=== PATIENT | male | born 1975 | race Caucasian/White ===

== ENCOUNTER 2021-10-20 01:38 | Emergency (ER) | payer BC, SELFPAY ==
[2021-10-20] VITALS (12 sets, daily range): BP systolic 162–198; BP diastolic 94–116; PULSE 90–111; RESP 14–16; TEMP 37.2; O2SAT 94–99; BMI 38.7
--- NOTE | 2021-10-20 01:40 | EKG12_ITS ---
Test Reason : STROKE Blood Pressure : / mmHG Vent. Rate : 088 BPM Atrial Rate : 088 BPM P-R Int : 174 ms QRS Dur : 092 ms QT Int : 372 ms P-R-T Axes : 036 -23 034 degrees QTc Int : 450 ms Normal sinus rhythm Poor R wave progression Confirmed by GABRIELA FERREIRA, LINDA ([id number]), offline editor VIVEK MATT ([id number]) on 10/21/2021 11:45:46 AM Referred By: GILBERTO Confirmed By:LINDA OCHOA MD
--- NOTE | 2021-10-20 01:40 | CT_ITS ---
We are attempting to reach an attending provider to discuss findings. An addendum with communication details will be sent when the communication is complete. STUDY: CT HEAD STROKE PROTOCOL W/O CONTRAST INJECTION REASON FOR EXAM: Male, 46 years old. Neuro deficit, acute, stroke suspected RADIATION DOSAGE (If Supplied By Facility): CTDIvol = ( ) mGy, DLP = ( ) mGycm TECHNIQUE: Transaxial CT imaging of the brain was performed without administration of intravenous contrast material. The study was timed stamped 1:41 AM and sent for interpretation at 1:54 AM. Individualized dose optimization techniques were used for this CT. COMPARISON: No relevant priors. FINDINGS: Normal soft tissue structures. Normal calvarium. There is slight effacement of the right side of the ventricles. Normal white matter tracts of the cerebral hemispheres. There is a hemorrhage in the right-sided basal ganglia midline partially extending into the thalamus and partially extending upwards towards the right-sided periventricular white matter and caudate. This measures approximately 2.4 x 2.1 x 3.2 cm centrally and more superiorly there is a focus measuring 2.7 x 1.3 x 2.1 cm. There are smaller adjacent foci measuring 8 to 7 mm. There is some extension within the right side posterior horn with subtle visualized hyperdensity and effacement. Normal brainstem. Normal cerebellum. There is minimal ethmoid sinus mucosal thickening maxillary mucosal thickening. CT/STROKE Brain/Head without Cont IMPRESSION: Acute 2.4 x 2.1 x 3.2 cm with surrounding smaller hemorrhages in the right-sided basal ganglia with subtle extension into the right posterior horn.. Consider hypertensive bleed, could consider hemorrhagic infarct less likely hemorrhagic mass. There is slight right to left midline shift. Electronically Signed: Amalia Membreno MD at 2:01 EST Tel , Service support ,
[2021-10-20 02:01] LABS: Absolute Lymphocyte Count 2.95 X10^3/uL (0.83-4.51); Absolute Neutrophil Count 5.4 X10^3/uL (2.0-7.7); Basophil# 0.06 X10^3/uL; Basophil% 0.6 % (0-1); Eosinophil# 0.24 X10^3/uL; Eosinophils% 2.6 % (0-5); Hematocrit 44.8 % (40-54); Hemoglobin 15.8 g/dL (13.0-16.5); Lymphocyte # 2.95 X10^3/ul (0.83-4.51); Lymphocyte % 31.4 % (19-41); Mean Corp Hgb Conc 35.3 g/dL (32-36); Mean Corpuscular Hgb 32.4 pg (27.0-32.0); Mean Corpuscular Volume 91.8 fL (80-94); Mean Platelet Vol. 11.4 fl (6.2-12.0); Monocyte# 0.71 X10^3/uL; Monocyte% 7.6 % (0-10); NRBC Flagged by Analyzer 0 % (0-5); Neutrophil % 57.5 % (47-70); Platelet Count 214 K/mm3 (150-450); RBC Distribution Width CV 12.4 % (11.6-14.6); RBC Distribution Width SD 42.1 fl (35.1-43.9); Red Blood Count 4.88 M/mm3 (4.6-6.2); White Blood Count 9.4 K/mm3 (4.4-11.0)
[2021-10-20 02:10] LABS: International Normalized Ratio 1.1; Prothrombin Time (Protime)PT. 13.8 SECONDS (11.7-14.9)
[2021-10-20 02:11] LABS: Partial Thromboplast Time 30.6 Seconds (24.1-36.2)
[2021-10-20 02:29] LABS: Anion Gap 9 (5-15); BUN 19 mg/dL (7-18); BUN/Creat Ratio 17.1 RATIO (10-20); Calcium,Total 9.3 mg/dL (8.5-10.1); Chloride 103 mmol/L (98-107); Creatinine, Serum 1.11 mg/dL (0.70-1.30); EST Glomerular Filtration Rate 76 mL/min (>60); Est Glom Filt Rate - Afr Amer 92 mL/min (>60); Estimated Creatinine Clearance 78.57 ml/min; Glucose 340 mg/dL (74-106); Potassium 3.6 mmol/L (3.5-5.1); Sodium Level 138 mmol/L (136-145); Troponin-I HS 12 pg/mL (3.0-78.0)
--- NOTE | 2021-10-20 03:34 | ED.VIS.STROK ---
HPI History of Present Illness Chief Complaint: Neuro S/Sx Narrative Narrative: 46-year-old male with onset of left-sided facial droop and left arm and leg paralysis without sensation at 0107 at work while at [employer]. Patient brought to the emergency room and presents similarly. Patient is alert and awake and answers questions appropriately but cannot move his left arm or left leg and has facial droop and slurred speech. He denies pain anywhere. He states he has no history of stroke. History of diabetes, hypertension. [facility] Medical History Diabetes mellitus Hypertension Home Medications metformin 1,000 mg PO DAILY 10/20/21 [History Last Taken Unknown] Allergy/AdvReac Type Severity Reaction Status Date / Time bee venom protein (honey bee) AdvReac PT UNSURE Verified 10/20/21 02:00 OF REACTION Social History Smoking Status: Unknown if ever smoked ROS ROS ED Constitutional Constitutional ED: Denies chills or fever(s) Eyes Eyes: Denies blurry vision or change in vision ENT ENT ED: Denies rhinorrhea or sore throat Cardiovascular Cardiovascular: Denies chest pain or palpitations Respiratory/Chest Respiratory/Chest: Denies cough or dyspnea Gastrointestinal Gastrointestinal: Denies abdominal pain, nausea or vomiting Genitourinary Genitourinary ED: Denies dysuria or hematuria Neurologic Neurologic: Reports headache(s), paresthesias LUE and LLE and weakness Psychiatric Psychiatric: Denies anxiety or depression EXAM Physical Exam Const Vital Signs: 10/20/21 01:40 10/20/21 01:47 10/20/21 01:57 Temperature 99 F 99 F Temperature Source Temporal Temporal Pulse Rate 94 90 96 Respiratory Rate 15 14 16 Blood Pressure 198/116 H 198/116 H 198/116 H Blood Pressure Mean 143 143 143 Blood Pressure Source Pulse Ox 99 97 96 Oxygen Delivery Method Room Air Room Air 10/20/21 01:59 10/20/21 02:01 10/20/21 02:14 Temperature Temperature Source Pulse Rate 94 100 Respiratory Rate 15 16 Blood Pressure 190/113 H 190/113 H 183/105 H Blood Pressure Mean 138 138 131 Blood Pressure Source Monitor Pulse Ox 96 97 Oxygen Delivery Method Room Air Room Air 10/20/21 02:15 10/20/21 02:30 10/20/21 02:32 Temperature Temperature Source Pulse Rate 100 106 H Respiratory Rate 15 16 Blood Pressure 183/105 H 171/99 H 171/99 H Blood Pressure Mean 131 123 123 Blood Pressure Source Monitor Monitor Pulse Ox 96 97 Oxygen Delivery Method Room Air Room Air 10/20/21 02:41 10/20/21 02:45 10/20/21 02:53 Temperature Temperature Source Pulse Rate 111 H Respiratory Rate 16 Blood Pressure 171/101 H 162/94 H 162/94 H Blood Pressure Mean 124 116 116 Blood Pressure Source Monitor Monitor Pulse Ox 94 Oxygen Delivery Method Room Air Positive obese Nutritional Appearance: obese HEENT Reports moist mucous membranes atraumatic Eyes PERRL and EOMs intact bilaterally Neck no lymphadenopathy and supple Chest Wall inspection of chest normal Resp normal respiratory effort and clear to auscultation bilaterally Cardio Rate: regular rate Rhythm: regular rhythm GI normal to inspection, nondistended, normoactive bowel sounds Neuro oriented x3 Neuro Narrative: NIH stroke scale score of 16 Sensorium / Orientation: alert Psych mental status grossly normal Skin no wounds General Skin Exam: Negative for jaundice STROKE Vital Signs/Narrative: Vital Signs Temp Pulse Resp BP Pulse Ox 10/20/21 02:53 162/94 H 10/20/21 02:45 111 H 16 162/94 H 94 10/20/21 02:41 171/101 H 10/20/21 02:32 171/99 H 10/20/21 02:30 106 H 16 171/99 H 97 10/20/21 02:15 100 15 183/105 H 96 10/20/21 02:14 100 16 183/105 H 97 10/20/21 02:01 190/113 H 10/20/21 01:59 94 15 190/113 H 96 10/20/21 01:57 99 F 96 16 198/116 H 96 10/20/21 01:47 99 F 90 14 198/116 H 97 10/20/21 01:40 94 15 198/116 H 99 MDM MDM MDM Narrative Medical decision making narrative: 46-year-old male presenting with acute stroke symptoms. His NIH stroke score is 15 for mild facial palsy, inability to move his left arm or left leg and loss of sensation in both. He has mild aphasia as well as mild dysarthria. He is unable to do [id number] on the left or touch his nose with his left hand. Stroke team is called. Patient is taken to CT. Patient is not on any blood thinners. His blood pressure is elevated. Patient noted to have an acute hemorrhagic stroke on CT and Cardene drip was started at 5 mg/h. While awaiting the official read of the CAT scan I did speak to [facility] to arrange transport. Once they accepted I called [facility] so that they could be here quickly. The patient required multiple evaluations to titrate the Cardene drip to an effective antihypertensive dose. His blood pressure has come down to 162/94 on [facility] arrival. He is at the max currently at 15 mg/h.his neurologic examination has not worsened or improved. The radiologist did call about the CT of the brain and did tell me the patient had an acute 2.4 x 2.1 x 3.2 cm hemorrhagic stroke in the right basal ganglia with small surrounding hemorrhages with extension into the posterior horn. CBC shows no leukocytosis and hemoglobin hematocrit are stable. Platelets are normal. PT/INR also normal. High-sensitivity troponin is 12. Renal function and electrolytes are normal. EKG on my interpretation shows a normal sinus rhythm with a ventricular rate of 88 bpm without sign of ischemic change. Impression: 1. Acute hemorrhagic stroke 2. Hypertensive emergency Lab Data Attestation: I reviewed the patient's lab results. Labs: Laboratory Results - last 24 hr 10/20/21 10/20/21 10/20/21 01:50 01:50 01:50 WBC 9.4 RBC 4.88 Hgb 15.8 Hct 44.8 MCV 91.8 MCH 32.4 H MCHC 35.3 RDW Std Deviation 42.1 RDW Coeff of Ariadna 12.4 Plt Count 214 MPV 11.4 Immature Gran % (Auto) 0.300 Neut % (Auto) 57.5 Lymph % (Auto) 31.4 [place] % (Auto) 7.6 Eos % (Auto) 2.6 Baso % (Auto) 0.6 Absolute Neuts (auto) 5.4 Absolute Lymphs (auto) 2.95 Nucleated RBC % 0 PT 13.8 INR 1.1 APTT 30.6 Sodium 138 Potassium 3.6 Chloride 103 Carbon Dioxide 26.0 Anion Gap 9 BUN 19 H Creatinine 1.11 Estim Creat Clear Calc 78.57 Est GFR (MDRD) Af Amer 92 Est GFR (MDRD) Non-Af 76 BUN/Creatinine Ratio 17.1 Glucose 340 H Calcium 9.3 Troponin I High Sens 12 Radiography Diagnostic Testing: Clinical Impression(s) from Imaging Studies Brain CT 10/20/21 01:40 IMPRESSION: Acute 2.4 x 2.1 x 3.2 cm with surrounding smaller hemorrhages in the right-sided basal ganglia with subtle extension into the right posterior horn.. Consider hypertensive bleed, could consider hemorrhagic infarct less likely hemorrhagic mass. There is slight right to left midline shift. Electronically Signed: Amalia Membreno MD at 2:01 EST Tel , Service support , ADDENDUM: 10/20/21 0221 IMPRESSION: Acute 2.4 x 2.1 x 3.2 cm with surrounding smaller hemorrhages in the right-sided basal ganglia with subtle extension into the right posterior horn.. Consider hypertensive bleed, could consider hemorrhagic infarct less likely hemorrhagic mass. There is slight right to left midline shift. N.B. : The above Results were Read Back by Amalia Membreno MD to Dr. Daniel MD, and understanding confirmed on 10/20/2021 02:14:03 (ET). Electronically Signed: Amalia Membreno MD at 2:01 EST Tel , Service support , Discharge Plan Triage Chief Complaint: Neuro S/Sx ED Provider: Jose Antonio Sanchez Dx/Rx/DC Orders Prescriptions: No Action metformin 1,000 mg Tablet 1,000 mg PO DAILY RF: 0 Primary Care Provider: Ok Root Referrals: Ok Root MD [Primary Care Provider] - Disposition Disposition: Acute Care Hospital Discharge Location: [facility] Discharge Date/Time: 10/20/21 03:06
== END 2021-10-20 03:06 | disposition short-term general hospital (02) ==
LOC: ED 02:17
PROVIDERS: Emergency Provider Student in an Organized Health Care Education/Training Program; PCP Family Medicine
DX: I61.9 Nontraumatic intracerebral hemorrhage, unspecified (principal); R29.810 Facial weakness; R47.01 Aphasia; R47.02 Dysphasia; G83.24 Monoplegia of upper limb affecting left nondominant side; G83.14 Monoplegia of lower limb affecting left nondominant side; R29.715 NIHSS score 15; I16.1 Hypertensive emergency; I10 Essential (primary) hypertension; E11.9 Type 2 diabetes mellitus without complications; Z79.84 Long term (current) use of oral hypoglycemic drugs; Z79.899 Other long term (current) drug therapy
CPT/HCPCS: 70450; 80048; 84484; 85025; 85610; 85730; 93005; 96365; 96375; 99285; J7050; A4216

== ENCOUNTER → 2021-12-31 | Outpatient (REF) | payer SELFPAY ==
[2021-12-31 08:21] LABS: Absolute Lymphocyte Count 2.15 X10^3/uL (0.83-4.51); Absolute Neutrophil Count 3.5 X10^3/uL (2.0-7.7); Basophil# 0.04 X10^3/uL; Basophil% 0.6 % (0-1); Eosinophil# 0.19 X10^3/uL; Hematocrit 44.4 % (40-54); Hemoglobin 15.1 g/dL (13.0-16.5); Lymphocyte # 2.15 X10^3/ul (0.83-4.51); Lymphocyte % 33.9 % (19-41); Mean Corpuscular Hgb 32.3 pg (27.0-32.0); Mean Corpuscular Volume 95.1 fL (80-94); Mean Platelet Vol. 11.3 fl (6.2-12.0); Monocyte# 0.46 X10^3/uL; Monocyte% 7.3 % (0-10); NRBC Flagged by Analyzer 0 % (0-5); Neutrophil # 3.48 X10^3/uL (2.7-7.7); Neutrophil % 54.9 % (47-70); Platelet Count 215 K/mm3 (150-450); RBC Distribution Width CV 13.2 % (11.6-14.6); RBC Distribution Width SD 45.9 fl (35.1-43.9); Red Blood Count 4.67 M/mm3 (4.6-6.2); White Blood Count 6.3 K/mm3 (4.4-11.0)
[2021-12-31 08:34] LABS: BUN 17 mg/dL (7-18); EST Glomerular Filtration Rate 154 mL/min (>60); Glucose 107 mg/dL (74-106)
[2021-12-31 08:35] LABS: Anion Gap 7 (5-15); BUN/Creat Ratio 28.2 RATIO (10-20); CRP 3.35 mg/L (0.0-3.0); Calcium,Total 9.4 mg/dL (8.5-10.1); Chloride 104 mmol/L (98-107); Est Glom Filt Rate - Afr Amer 186 mL/min (>60); Potassium 3.4 mmol/L (3.5-5.1); Sodium Level 139 mmol/L (136-145)
[2021-12-31 08:36] LABS: Hemoglobin A1c 6.3 % (3.8-5.6)
== END | disposition home or self-care (01) ==
LOC: OLS.SW1020 04:00
PROVIDERS: PCP Family Medicine; Referring Provider Internal Medicine; Visit Provider Internal Medicine
DX: I10 Essential (primary) hypertension (principal); E11.9 Type 2 diabetes mellitus without complications
CPT/HCPCS: 36415; 80048; 82306; 83036; 83735; 85025; 86140

== ENCOUNTER → 2022-01-11 | Outpatient (REF) | payer SELFPAY ==
[2022-01-11 08:42] LABS: Hematocrit 46.6 % (40-54); Hemoglobin 16.1 g/dL (13.0-16.5); Mean Corp Hgb Conc 34.5 g/dL (32-36); Mean Corpuscular Hgb 32.7 pg (27.0-32.0); Mean Corpuscular Volume 94.7 fL (80-94); Mean Platelet Vol. 11.9 fl (6.2-12.0); Platelet Count 228 K/mm3 (150-450); RBC Distribution Width CV 12.7 % (11.6-14.6); RBC Distribution Width SD 44.3 fl (35.1-43.9); Red Blood Count 4.92 M/mm3 (4.6-6.2); White Blood Count 8.1 K/mm3 (4.4-11.0)
[2022-01-11 09:05] LABS: Anion Gap 6 (5-15); BUN 18 mg/dL (7-18); BUN/Creat Ratio 25.4 RATIO (10-20); Calcium,Total 9.4 mg/dL (8.5-10.1); Chloride 105 mmol/L (98-107); Creatinine, Serum 0.71 mg/dL (0.70-1.30); EST Glomerular Filtration Rate 127 mL/min (>60); Est Glom Filt Rate - Afr Amer 154 mL/min (>60); Glucose 111 mg/dL (74-106); Potassium 3.7 mmol/L (3.5-5.1); Sodium Level 137 mmol/L (136-145)
== END | disposition home or self-care (01) ==
LOC: OLS.SW1020 04:00
PROVIDERS: PCP Family Medicine; Referring Provider Internal Medicine; Visit Provider Internal Medicine
DX: I10 Essential (primary) hypertension (principal); I63.9 Cerebral infarction, unspecified; E11.9 Type 2 diabetes mellitus without complications
CPT/HCPCS: 36415; 80048; 85027

== ENCOUNTER → 2022-01-18 | Outpatient (REF) | payer SELFPAY ==
[2022-01-18 07:58] LABS: Hematocrit 45.9 % (40-54); Hemoglobin 16.2 g/dL (13.0-16.5); Mean Corp Hgb Conc 35.3 g/dL (32-36); Mean Corpuscular Hgb 33.1 pg (27.0-32.0); Mean Corpuscular Volume 93.7 fL (80-94); Mean Platelet Vol. 11.5 fl (6.2-12.0); Platelet Count 236 K/mm3 (150-450); RBC Distribution Width CV 12.6 % (11.6-14.6); RBC Distribution Width SD 43.8 fl (35.1-43.9); White Blood Count 9.2 K/mm3 (4.4-11.0)
[2022-01-18 08:24] LABS: Anion Gap 7 (5-15); BUN 16 mg/dL (7-18); Calcium,Total 9.1 mg/dL (8.5-10.1); Chloride 105 mmol/L (98-107); Creatinine, Serum 0.64 mg/dL (0.70-1.30); EST Glomerular Filtration Rate 143 mL/min (>60); Est Glom Filt Rate - Afr Amer 173 mL/min (>60); Glucose 123 mg/dL (74-106); Potassium 3.3 mmol/L (3.5-5.1); Sodium Level 137 mmol/L (136-145)
== END | disposition home or self-care (01) ==
LOC: OLS.SW500 04:00
PROVIDERS: PCP Family Medicine; Visit Provider Internal Medicine
DX: I10 Essential (primary) hypertension (principal)
CPT/HCPCS: 36415; 80048; 85027

== ENCOUNTER 2022-01-22 05:36 | Emergency (ER) | payer SELFPAY ==
[2022-01-22 05:38] VITALS: BP 152/93; PULSE 114; RESP 24; TEMP 36.4; O2SAT 95; BMI 32.4
--- NOTE | 2022-01-22 05:48 | RAD_ITS ---
STUDY: X-RAY CHEST REASON FOR EXAM: Male, 46 years old. cough TECHNIQUE: AP portable upright COMPARISON: None. FINDINGS: The lungs are clear and expanded. There is no demonstrated pleural abnormality. There is high position of the diaphragm. There may be mild atelectasis partly obscured by the elevated diaphragm on the right. Normal size heart. Normal mediastinum and sana. Normal visualized pulmonary arteries. Normal visualized aortic arch and descending thoracic aorta. Normal visualized thoracic spine. Normal visualized ribs, clavicles, and shoulders. There is no demonstrated abnormality of the visualized soft tissue structures of the upper abdomen. RAD/Chest 1 View (Portable) IMPRESSION: Lack of a deep inspiration with elevated diaphragm more prominent on the right. Electronically Signed: Maverick Roger MD at 6:47 EDT ,
[2022-01-22 06:18] LABS: Absolute Lymphocyte Count 0.53 X10^3/uL (0.83-4.51); Absolute Neutrophil Count 16.7 X10^3/uL (2.0-7.7); Basophil# 0.03 X10^3/uL; Basophil% 0.2 % (0-1); Hematocrit 47.5 % (40-54); Hemoglobin 17.2 g/dL (13.0-16.5); Lymphocyte # 0.53 X10^3/ul (0.83-4.51); Lymphocyte % 2.9 % (19-41); Mean Corp Hgb Conc 36.2 g/dL (32-36); Mean Corpuscular Hgb 32.8 pg (27.0-32.0); Mean Corpuscular Volume 90.6 fL (80-94); Mean Platelet Vol. 10.9 fl (6.2-12.0); Monocyte% 3.9 % (0-10); NRBC Flagged by Analyzer 0 % (0-5); Neutrophil # 16.66 X10^3/uL (2.7-7.7); Neutrophil % 92.6 % (47-70); POSITIVE DIFFERENTIAL YES; Platelet Count 279 K/mm3 (150-450); RBC Distribution Width CV 12.5 % (11.6-14.6); RBC Distribution Width SD 41.2 fl (35.1-43.9); Red Blood Count 5.24 M/mm3 (4.6-6.2)
[2022-01-22] MEDS: 0.9% Normal Saline 1,000 ML 999 ML IV (06:18)
[2022-01-22 06:21] LABS: Differential Indicated SCAN CRITERIA MET
[2022-01-22 06:33] LABS: Differential Comment SCANNED
--- NOTE | 2022-01-22 06:34 | CT_ITS ---
STUDY: CT ABDOMEN AND PELVIS WITH CONTRAST REASON FOR EXAM: Male, 46 years old. Abdominal pain RADIATION DOSAGE (If Supplied By Facility): CTDIvol = ( 13.54 ) mGy, DLP = ( 1256.54 ) mGycm TECHNIQUE: Transaxial images were obtained from the dome of the diaphragm to the symphysis pubis without oral contrast. IV 100mL Isovue-370 was administered. Sagittal and coronal images were reconstructed. Individualized dose optimization techniques were used for this CT. COMPARISON: None. FINDINGS: There is patchy right lower lung consolidation. There are coronary artery calcifications. Normal liver. Normal gallbladder and extrahepatic biliary system. Normal spleen. Normal pancreas. Normal bilateral adrenal glands. There are 1.9 and 1.0 cm cyst of the right kidney. Normal left kidney. Normal visualized stomach. Normal small intestine. Normal colon. The appendix is visualized and appears normal. Normal abdominal aorta. Normal inferior vena cava. Normal retroperitoneum. Normal urinary bladder. There is no free fluid in the abdomen or pelvis. Normal abdominal wall. Mild degenerative change of the spine. CT/Abdomen/Pelvis W IV Cont ONLY IMPRESSION: No intra-abdominal mass or obstruction. No hydronephrosis. Patchy right lower lung infiltrate. Electronically Signed: Daniel Garcia MD at 9:44 EDT Reading Location ID and State: [facility] / [place] , Service support ,
[2022-01-22 06:43] LABS: Lactic Acid 2.8 mmol/L (0.4-1.9)
--- NOTE | 2022-01-22 08:01 | EDS_ITS ---
HPI History of Present Illness Chief Complaint: Alt LOC Narrative Narrative: Patient is a 46-year-old male from the long term. 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 Nursing reports that he is typically fatigued and slow to respond. They state that there has been a stomach bug going to the facility and the patient's had bouts of nausea and vomiting. They state with this his mental status seems more lethargic than his baseline and therefore he was sent to the hospital for evaluation. Patient cannot provide any further history at this time [facility] Medical History Diabetes mellitus High cholesterol Hypertension Incontinence Stroke/cerebrovascular accident Home Medications apixaban 5 mg PO BID 01/22/22 [History Last Taken Unknown] atorvastatin 40 mg PO DAILY 01/22/22 [History Last Taken Unknown] cholecalciferol (vitamin D3) [Vitamin D3] unit PO DAILY 01/22/22 [History Last Taken Unknown] fluoxetine 40 mg PO DAILY 01/22/22 [History Last Taken Unknown] hydrochlorothiazide 25 mg PO DAILY 01/22/22 [History Last Taken Unknown] lactobacillus combination no.4 [Probiotic] 3,000 mmu cells PO DAILY 01/22/22 [History Last Taken Unknown] lisinopril 10 mg PO DAILY 01/22/22 [History Last Taken Unknown] magnesium 400 mg PO DAILY 01/22/22 [History Last Taken Unknown] multivit no.78-msji-jklhd acid 1 cap PO DAILY 01/22/22 [History Last Taken Unknown] potassium [Potassimin] 20 PO DAILY 01/22/22 [History Last Taken Unknown] Allergy/AdvReac Type Severity Reaction Status Date / Time bee venom protein (honey bee) AdvReac PT UNSURE Verified 10/20/21 13:09 OF REACTION Social History (System 10/20/21 @ 13:09 by Amanda Urena) Smoking Status: Unknown if ever smoked ROS ROS ED Review of Systems ROS Unobtainable: due to mental status EXAM Physical Exam Const Vital Signs: 01/22/22 05:38 Temperature 97.6 F L Temperature Source Temporal Pulse Rate 114 H Respiratory Rate 24 H Blood Pressure 152/93 H Blood Pressure Mean 112 Pulse Ox 95 Oxygen Delivery Method Room Air Positive well nourished and well developed General Appearance ED: well developed HEENT Reports dry mucous membranes HEENT Narrative: No tongue or cheek biting noted Mouth ED: Yes dry mucous membranes Mouth: dry mucous membranes Eyes PERRL Neck supple Neck Narrative: No meningeal signs Chest Wall palpation of chest normal Resp Resp Narrative: Breath sounds are diminished throughout but overall clear to auscultation with no nasal flaring or retractions noted patient does have mild tachypnea Cardio regular rhythm Rate: tachycardic and other GI non-tender, non-distended and no masses GI Narrative: Bowel sounds are hyperactive but there is no pulsatile mass or fluid wave or rigidity noted Palpation: soft Narrative: No testicular masses or swelling noted no blood or discharge from the urethral meatus. No overlying soft tissue changes to suggest Darrius's gangrene Extremity Extremity Narrative: Patient has paralysis of his left arm and leg consistent with history of previous stroke but there are no signs of acute bony trauma or joint effusion Neuro Neuro Narrative: Patient is obtunded but does respond to pain and is protecting his airway there is no obvious focal neurologic deficit other than his chronic changes from previous CVA Skin no rashes or lesions noted Skin Narrative: Skin turgor is increased without secondary changes to suggest infection MDM MDM MDM Narrative Medical decision making narrative: Patient presented to the ER actually hypertensive and slightly tachycardic. He had tachypnea but otherwise no acute respiratory distress and was taken off oxygen the EMS and placed him on. He desatted to 89% on room air so he was placed on a couple liters of nasal cannula and his pulse ox improved to 92 to 93%. According to long term he is always altered and slow to respond. He seems more so than his baseline according to long term but overall he has no new focal neurologic deficits and is protecting his airway. With his history of vomiting and his tachycardia and concern for dehydration and metabolic encephalopathy as the cause of his symptoms. I do not believe there is physical exam or history findings to suggest acute stroke so there is no need for a CT of his brain at this time or to further assess mental status with ammonia or a blood gas. Patient's white count is elevated at 18 and therefore he will receive a CT of his abdomen pelvis to look for possible infectious process. Patient will be signed out to the incoming physician pending results of the CT scan Lab Data Labs: Laboratory Results - last 24 hr 01/22/22 01/22/22 01/22/22 06:12 06:12 06:12 WBC 18.0 H RBC 5.24 Hgb 17.2 H Hct 47.5 MCV 90.6 MCH 32.8 H MCHC 36.2 H RDW Std Deviation 41.2 RDW Coeff of Ariadna 12.5 Plt Count 279 MPV 10.9 Immature Gran % (Auto) 0.400 Neut % (Auto) 92.6 H Lymph % (Auto) 2.9 L [place] % (Auto) 3.9 Eos % (Auto) 0.0 Baso % (Auto) 0.2 Absolute Neuts (auto) 16.7 H Absolute Lymphs (auto) 0.53 L Nucleated RBC % 0 Differential Comment SCANNED Sodium Cancelled Potassium Cancelled Chloride Cancelled Carbon Dioxide Cancelled Anion Gap Cancelled BUN Cancelled Creatinine Cancelled Estim Creat Clear Calc Cancelled Est GFR (MDRD) Af Amer Cancelled Est GFR (MDRD) Non-Af Cancelled BUN/Creatinine Ratio Cancelled Glucose Cancelled Lactic Acid 2.8 H* Calcium Cancelled Total Bilirubin Cancelled Direct Bilirubin Cancelled AST Cancelled ALT Cancelled Alkaline Phosphatase Cancelled Total Protein Cancelled Albumin Cancelled Globulin Cancelled Lipase Cancelled Radiography Chest X-Ray - ED: 1 View, Read by ED Physician and - (Chest x-ray interpreted by me shows elevation of the diaphragm and poor inspiration but no obvious inflammatory or infectious process) Diagnostic Testing: Clinical Impression(s) from Imaging Studies Chest X-Ray 01/22/22 05:48 IMPRESSION: Lack of a deep inspiration with elevated diaphragm more prominent on the right. Electronically Signed: Maverick Roger MD at 6:47 EDT , Discharge Plan Triage Chief Complaint: Alt LOC ED Provider: Koko Patel Dx/Rx/DC Orders Prescriptions: No Action fluoxetine 40 mg Capsule 40 mg PO DAILY RF: 0 atorvastatin 40 mg Tablet 40 mg PO DAILY RF: 0 Potassimin 75 mg Tablet 20 PO DAILY RF: 0 lisinopril 10 mg Tablet 10 mg PO DAILY RF: 0 hydrochlorothiazide 25 mg Tablet 25 mg PO DAILY RF: 0 magnesium 200 mg Tablet 400 mg PO DAILY RF: 0 multivit no.22-eghw-ivpye acid 106.5-1 mg Capsule 1 cap PO DAILY RF: 0 cholecalciferol (vitamin D3) [Vitamin D3] 125 mcg (5,000 unit) Tablet PO DAILY RF: 0 apixaban 5 mg Tablet 5 mg PO BID RF: 0 Probiotic 3 billion cell Capsule 3,000 mmu cells PO DAILY RF: 0 Primary Care Provider: Violeta Mejia
[2022-01-22 08:16] LABS: AST(SGOT) 14 U/L (15-37); Alanine Aminotransfer ALT/SGPT 34 U/L (16-61); Albumin, Serum 3.3 g/dL (3.2-5.0); Alkaline Phosphatase 154 U/L (45-117); Anion Gap 8 (5-15); BUN 17 mg/dL (7-18); BUN/Creat Ratio 20.8 RATIO (10-20); Bilirubin, Direct 0.38 mg/dL (0.00-0.30); Calcium,Total 9.1 mg/dL (8.5-10.1); Chloride 106 mmol/L (98-107); Creatinine, Serum 0.82 mg/dL (0.70-1.30); EST Glomerular Filtration Rate 108 mL/min (>60); Est Glom Filt Rate - Afr Amer 131 mL/min (>60); Estimated Creatinine Clearance 98.96 ml/min; Globulin 4.2 g/dL (2.2-4.2); Glucose 217 mg/dL (74-106); Lipase 50 U/L (73-393); Potassium 3.4 mmol/L (3.5-5.1); Protein, Total 7.5 g/dL (6.4-8.2); Sodium Level 136 mmol/L (136-145)
[2022-01-22 08:41] LABS: Bacteria 0 SEEN /hpf (None Seen); Mucous, Urine 0 SEEN /hpf (<or=2+); Squamous Epithelial Cells - UA 0 SEEN /hpf (0-5); White Blood Cells 0 SEEN /hpf (0-5)
[2022-01-22 08:43] LABS: Color, Urine Yellow (Yellow); Glucose, Dipstick 250 mg/dl (Normal); Leukocyte Esterase-Dipstick Negative /ul (Negative); Nitrite-Dipstick Negative (Negative); Occult Blood-Urine 10 /ul (Negative); Protein-Dipstick 15 mg/dl (Negative); Urine Bilirubin Dipstick Negative (Negative); Urine Clarity Clear (Clear); Urine Urobilinogen Normal (Normal)
[2022-01-22 08:50] LABS: Ketone-Dipstick 150 mg/dl (Negative)
--- NOTE | 2022-01-22 09:05 | CT_ITS ---
STUDY: CT BRAIN WITHOUT CONTRAST REASON FOR EXAM: Male, 46 years old. mental status change RADIATION DOSAGE (If Supplied By Facility): CTDIvol = ( 44.99 ) mGy, DLP = ( 880.47 ) mGycm TECHNIQUE: Transaxial CT imaging of the brain was performed without administration of intravenous contrast material. Individualized dose optimization techniques were used for this CT. COMPARISON: No relevant priors. FINDINGS: Normal soft tissue structures. Normal calvarium. Dilation of the lateral and third ventricles with intraventricular hemorrhage layering dependently in the right more than left lateral ventricles. Intraventricular hemorrhage extends through the third ventricle and the fourth ventricle. Focal hemorrhage of the right paramedial anterior third ventricle extending into the right basal ganglia measures 3.5 x 5.2 cm on image 25 of series 2. The hemorrhage appears to extend to the region of the anterior cerebral artery (left more than right) on image 39 series 601). There appears to be vascular contrast, likely from recent CT. There is relative effacement of the frontoparietal cerebral cortices. Normal brainstem. Normal cerebellum. There are no findings of an acute ischemic infarction. Small air-fluid levels of the bilateral maxillary sinuses. CT/Brain/Head without Contrast IMPRESSION: 1. Abnormal exam. Intraventricular (right more than left lateral, third and fourth) hemorrhage with ventriculomegaly and cerebral effacement. 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 Limited assessment for subarachnoid hemorrhage given vascular contrast. N.B. : The above Results were Read Back by Tavo Camp MD (Brooks) to Dr. Saul Pennington MD, and understanding confirmed on 01/22/2022 09:28:14 (ET). Electronically Signed: Tavo Camp MD (Brooks) at 9:30 EDT Reading Location ID and State: [address] [place] [address] , Service support ,
[2022-01-22 09:07] LABS: Red Blood Cells-Urine 0-5 SEEN /hpf (0-5)
[2022-01-22 09:33] VITALS: BP 135/85; PULSE 106; PULSE 108; RESP 24; RESP 31; TEMP 37.3; O2SAT 96
--- NOTE | 2022-01-22 09:39 | ED.RN ---
CALLED [facility] FOR THIS PATIENT, THEY ACCEPTED PATIENT, PATIENT IS GOING TO THE ER AND THEY WILL BE CALLING [facility] TO COME GET THE PATIENT, THEY WILL CALL BACK WITH A ETA
[2022-01-22] MEDS: Etomidate 20 MG/10 ML Vial IV (09:58)
--- NOTE | 2022-01-22 09:59 | ED.RN ---
preparing for intubation. 0958 - etomidate administered iv 20mg. bp 154/119. 105 hr 26rr 99%o2. pt restless. 1000 - 100 mary administered iv. 1002- intubation attempt. not in place. sats decreased 79% continue bagging. sats 94% bagging. hr 150. bp 212/146. 1004 - intubation with cric. pressure o2 sats maintained. intubation successful 21 at the lip. tube size 8. sats 96%. +color change. clifton lung sounds auscultated.
[2022-01-22] MEDS: Rocuronium Bromide 50 MG/5 ML Vial 100 MG IV (10:00)
[2022-01-22 10:08] VITALS: BP 191/120; PULSE 143; RESP 14; O2SAT 97
[2022-01-22 10:16] LABS: Reflex Lactate? Y
[2022-01-22] MEDS: HUMAN PROTHROMBIN COMPLX(PCC) 4,000 UNIT in Viaflex Bag 1 BAG 500 UNIT IV (10:17)
[2022-01-22] MEDS: Labetalol (Prefilled) 20 MG/4 ML IV ×2 (10:18→10:31)
[2022-01-22] MEDS: Propofol 10MG/Ml 1,000 MG/100 ML Bottle 5.3 MG CONT INF (10:19)
--- NOTE | 2022-01-22 10:19 | RAD_ITS ---
STUDY: X-RAY CHEST REASON FOR EXAM: Male, 46 years old. ETT TECHNIQUE: Single AP portable view of the chest. COMPARISON: January 22, 2022, earlier the same day FINDINGS: Endotracheal tube, 5 cm above the caden. Feeding tube extends to the stomach in the upper quadrant. There are monitoring devices. There are patchy left mid and lower lung airspace increased opacities. There is no demonstrated pleural abnormality. Normal size heart. Normal mediastinum and sana. Normal visualized pulmonary arteries. Normal visualized aortic arch and descending thoracic aorta. Normal visualized thoracic spine. Normal visualized ribs, clavicles, and shoulders. There is no demonstrated abnormality of the visualized soft tissue structures of the upper abdomen. RAD/Chest 1 View (Portable) IMPRESSION: Endotracheal tube and feeding tube placement. Left lower lung infiltrate. Electronically Signed: Daniel Garcia MD at 10:52 EDT ,
--- NOTE | 2022-01-22 10:20 | ED.RN ---
[facility] flight present and assuming care. report given.
--- NOTE | 2022-01-22 10:29 | ED.RN ---
ATTEMPTED TO CONTACT PT EMERG[facility]Y [facility]TA[facility], LISA PHONE GOES STRAIGHT TO BEEPING AND KIERRA DID NOT ANSWER THE PHONE UNABLE TO LEAVE A VOICEMAIL
--- NOTE | 2022-01-22 10:31 | CM.ED ---
ER RNCM Note According to patient insurance [facility] in network facilities for HLOC transfers are as follows: [facility], , [facility], [facility], [facility], [facility], [facility], [place] , [facility]. Jose Armando Vo, RNCM
[2022-01-22 10:32] VITALS: BP 170/117; PULSE 97; RESP 17; O2SAT 96
[2022-01-22 10:37] VITALS: BP 157/101; PULSE 95; RESP 16; O2SAT 95
[2022-01-22 10:41] VITALS: BP 144/92; PULSE 93; RESP 18; O2SAT 96
[2022-01-22 10:46] LABS: Base Excess -1 mmol/L (-2 to +2); Bicarbonate 24.2 mmol/L (22-26); Blood Gas Specimen Type ART; O2 Delivery Device Bagging; PO2 93 mmHG (75-100); SITE R Radial; SO2 97 % (95-99); Total Carbon Dioxide 26 mmol/L; pCO2 42.8 mmHg (35-45); pH 7.36 (7.35-7.45)
== END 2022-01-22 10:43 | disposition short-term general hospital (02) ==
PROVIDERS: Emergency Medicine; Emergency Provider Emergency Medicine; PCP Internal Medicine; Visit Provider Emergency Medicine
DX: I62.9 Nontraumatic intracranial hemorrhage, unspecified (principal); I69.354 Hemiplegia and hemiparesis following cerebral infarction affecting left non-dominant side; E11.9 Type 2 diabetes mellitus without complications; I10 Essential (primary) hypertension; E78.00 Pure hypercholesterolemia, unspecified; Z79.899 Other long term (current) drug therapy; Z79.01 Long term (current) use of anticoagulants; R29.708 NIHSS score 8
CPT/HCPCS: 31500; 36600; 70450; 71045; 74177; 80048; 80076; 81001; 82803; 83605; 83690; 85025; 87804; 96361; 96365; 96368; 99251; 99285; J7030; J7168; P9612; Q9967; A4216; G0463; J3490